=== PATIENT | male | born 1950 ===

== ENCOUNTER → 2020-01-26 11:26 | Outpatient (CLI) | payer OTHER ==
[~2020-01-26 11:26] MED LIST: OMEPRAZOLE40 MG
== END | disposition home or self-care (01) ==
LOC: LAB 11:26
PROVIDERS: ATTEND Internal Medicine Cardiovascular Disease
DX: D68.8 Other specified coagulation defects (principal)

== ENCOUNTER 2020-01-27 04:45 | Day surgery (SDC) | payer OTHER ==
[2020-01-28] MEDS ORDERED: OMEPRAZOLE40 MG (08:01)
== END 2020-01-28 08:00 | disposition home or self-care (01) ==
LOC: CIR.AMB 04:45 → O/R 12:56 → SURH 12:56 → O/R 19:56 → CIR.AMB 01-28 08:00 → SURH 01-28 17:13 → O/R 01-28 17:13
PROVIDERS: ATTEND Specialist
DX: K40.30 Unilateral inguinal hernia, with obstruction, without gangrene, not specified as recurrent (principal)

== ENCOUNTER → 2020-03-06 | Outpatient (CLI) | payer OTHER | END | disposition home or self-care (01) | LOC: TOM 10:14 | PROVIDERS: ATTEND Specialist | DX: K40.90 Unilateral inguinal hernia, without obstruction or gangrene, not specified as recurrent (principal); M79.3 Panniculitis, unspecified ==